=== PATIENT | female | born 1980 | race Caucasian/White ===

== ENCOUNTER 2023-01-02 00:51 | Day surgery (SDC) | payer BC, SELFPAY ==
[2022-12-22 14:38] VITALS: BMI 23.5
--- NOTE | 2022-12-22 15:02 | SUR.PREOP ---
Report to the Outpatient Waiting Room, entrance under the green pavilion located off [facility], at time 1100 on date 01/02/2023. Planned Procedure Time: 1300. Time changes happen often and if your time is changed the preop area will call you the afternoon before. - You and your visitor will be asked to self-screen and do not enter if you have any COVID symptoms. - A mask is optional within the hospital at this time. Patients may have clear liquids (water, carbonated beverages, clear teas, apple juice) until 3 hours prior to surgery with a maximum of 20 ounces- 1000. - No food from midnight until time of surgery - Infants may have breast milk until 4 hours before surgery, infant formula 6 hours prior to surgery. - Children will be allowed to drink immediately following surgery. If applicable, please bring a bottle or sippy cup to assist with drinking. Juice, water, soda, and popsicles are readily available. For infants on formula, please bring formula the day of surgery. Pacifiers are allowed. Take the following medications with a SIP of water the morning of surgery: N/A DO NOT STOP ANY OF YOUR OTHER PRESCRIPTION MEDICATIONS PRIOR TO SURGERY ?EXCEPT THE FOLLOWING Medications to discontinue per physician Vitamins and supplements Date to take last dose 12/29/2022 Please no make-up, nail kazakh, hairspray, perfume, deodorant, or body powder the day of surgery. No jewelry (including any body piercings) or valuables the day of surgery, leave them at home. Please take a shower or bath the night before, or the morning of, surgery with an antibacterial soap. Wear comfortable, loose fitting clothing. Children are encouraged to wear pajamas. - Jewelry must be removed prior to entering the operating room. Rings and piercings that are not removed may be cut off. - The hospital will not accept responsibility for valuables. - Please leave all valuables, including medications, at home the day of surgery. If you are going home after surgery, a licensed reefer truck driver must drive you home. - NO public transportation without another adult if you receive anesthesia. - We recommend that an adult stay with you for 24 hours following discharge. - We also recommend that you do not drive, make important decision, drink alcoholic beverages, or take any drugs that were not prescribed by your health care provider for at least 24 hours after your discharge time. For Pediatric surgeries, we recommend two adults accompany the child home. Follow any additional instructions given to you from your surgeon. If you or anyone in your household have experienced Covid symptoms in the past week, please notify your surgeon or the nurse liaison at the phone number below for possible testing. Telephone instructions given to ____patient- Juana and asked if any additional questions and then verbalized understanding. Patient advised to call surgeon office or pre surgery nurse liaison [phone] if any additional questions.
--- NOTE | 2023-01-02 10:39 | P.HP_ITS ---
History of Present Illness History of Present Illness Consent: Risks, benefits, and alternatives have been discussed and questions answered. Patient agrees to proceed with procedure. Chief complaint: spotting with orgasm Narrative: Juana Gallardo is a 42 year old female with vaginal bleeding after sex. Patient has no in between bleeding other than after intercourse. Cycles are regular with normal flow. It was recommended to proceed with further workup in the office with resultant normal colposcopy. It was recommended to proceed with D&C hysteroscopy and patient prefers to do in the operating room. Risks of infection, bleeding, perforation, and possible pathology are discussed. Review of Systems Review of Systems: not repeated day of surgery; patient states no changes in status PMFSH Past Medical History Medical History (Updated 01/02/23 @ 10:44 by Tia Finch MD) Anxiety MVP (mitral valve prolapse) (normal spontaneous vaginal delivery) PCOS (polycystic ovarian syndrome) Surgical History Surgical History (Updated 01/02/23 @ 10:43 by Tia Finch MD) History of breast augmentation and breast lift History of prior ablation treatment cervical 2020 Social History Social History Smoking status: Never smoker Alcohol intake: current Drinks per week: 2 Substance use: never Living arrangements: with family Spiritual care concerns: No Meds Home Medications and Allergies Home Medications Medication Instructions Recorded Confirmed Type cetirizine 10 mg capsule (Zyrtec) 10 mg PO DAILY 12/22/22 12/22/22 History multivitamin with minerals-folic 1 tablet PO DAILY 12/22/22 12/22/22 History acid 0.4 mg tablet ranitidine HCl 150 mg capsule 150 mg PO DAILY 12/22/22 12/22/22 History ubidecarenone-omega 3-vit E 25 1 cap PO DAILY 12/22/22 12/22/22 History mg-150 (90-60) mg-200 unit capsule (Co [id number] E-Fish Oil) Allergies Allergy/AdvReac Type Severity Reaction Status Date / Time No Known Allergies Verified 12/22/22 14:39 Exam Const: General: healthy appearing and alert Orientation/consciousness: patient oriented x3 Resp: Effort & Inspection: normal respiratory effort GI: GI Palp: Yes Soft to palpation, No Tenderness to palpation present (GI) and No Palpable mass present : External Female Exam: normal external appearance Speculum Exam - Vagina: normal appearance of the vagina and normal vaginal discharge Speculum Exam - Cervix: normal appearance of the cervix and Other cervical findings present ( the cervix is not friable and does not bleed with manipulation) Bimanual exam- vagina & uterus: uterine size normal and consistency normal Bi manual Exam- Adnexa, other: normal adnexae and No adnexal tenderness Neuro: General: patient oriented x3 Assessment and Plan Assessment and plan (1) Postcoital bleeding: Code(s): N93.0 - Postcoital and contact bleeding Status: Acute Assessment and Plan: There is no cervical bleeding on examination however the patient has bleeding after sex. Therefore, she presents for D&C hysteroscopy
--- NOTE | 2023-01-02 10:39 | WPDHPUPDATE1 ---
History and Physical Update Update Date/Time: 01/02/23 10:39 History and Physical has been reviewed, including an updated exam of the patient. There are NO changes in the patient's condition. Risks, benefits, and alternatives have been discussed and questions answered. Patient agrees to proceed with procedure.
[2023-01-02] MEDS: ACETAMINOPHEN 500 MG TABLET 1000 MG PO (11:00)
[2023-01-02 11:03] VITALS: BP 90/64; PULSE 74; RESP 14; TEMP 36.7; O2SAT 100
[2023-01-02] MEDS: LACTATED RINGERS 1,000 ML 30 ML IV CONT (11:06)
--- NOTE | 2023-01-02 12:09 | WPDANESEPPF ---
Anes - Initial Pre Proc Eval Procedure: Operation Date: 01/02/23 12:30 Proposed Procedures p Hysteroscopy, Dilation and Curettage - Tia Finch MD Date/Time: 01/02/23 12:09 Surgeon: Tia Finch MD Pre Op Diagnosis: spotting with orgasm Patient Data Age: 42 Gender: F Height: 1.7 m Weight: 68.3 kg Last Vital Signs Temp 36.7 C 01/02/23 11:03 Pulse 74 01/02/23 11:03 Resp 14 01/02/23 11:03 BP 90/64 L 01/02/23 11:03 Pulse Ox 100 01/02/23 11:03 O2 Del Method Room Air 01/02/23 11:03 Allergies Allergy/AdvReac Type Severity Reaction Status Date / Time No Known Allergies Verified 12/22/22 14:39 Home Medications Medication Instructions Recorded Confirmed Type cetirizine 10 mg capsule (Zyrtec) 10 mg PO DAILY 12/22/22 12/22/22 History multivitamin with minerals-folic 1 tablet PO DAILY 12/22/22 12/22/22 History acid 0.4 mg tablet ranitidine HCl 150 mg capsule 150 mg PO DAILY 12/22/22 12/22/22 History ubidecarenone-omega 3-vit E 25 1 cap PO DAILY 12/22/22 12/22/22 History mg-150 (90-60) mg-200 unit capsule (Co [id number] E-Fish Oil) Patient hx anesthesia problems: none Family hx anesthesia problems: none Results Review: All pre-operative results and documents have been reviewed as part of the pre-operative evaluation. FOR[facility]LY [facility], [facility] Past Medical History Medical History Anxiety MVP (mitral valve prolapse) (normal spontaneous vaginal delivery) PCOS (polycystic ovarian syndrome) Surgical History Surgical History History of breast augmentation and breast lift History of prior ablation treatment cervical 2020 Social History Social History Smoking status: Never smoker Alcohol intake: current Drinks per week: 2 Substance use: never Living arrangements: with family Spiritual care concerns: No Anes - Eval Final PreProcedure Day of Procedure 01/02/23 12:09 Patient weight: normal Heart: regular rate and rhythm Lungs: clear to auscultation Airway: Mallampati scale class II Neurological: alert and oriented Last oral intake: >/= 8 hours ASA classification: I Emergent: no Anesthetic plan: proceed Anesthesia type and monitoring: general GIVS and standard monitoring Results Review: All pre-operative results and documents have been reviewed as part of the pre-operative evaluation. Informed Consent: The patient's anesthetic plan and its attendant risks and benefits were discussed with the patient/family/POA. Questions were solicited and answers provided to the satisfaction of the patient/family/POA.
--- NOTE | 2023-01-02 12:50 | W.PM.PROC2 ---
Procedure Note - Detailed Date of Procedure 01/02/23 Pre-op Diagnosis Postcoital bleeding Post-op Diagnosis Same Procedure Performed D&C hysteroscopy Surgeon Tia Finch MD Anesthesia MAC Findings uterus sounds to 8cm and appears grossly normal Description of Procedure The patient is taken to the operating room and placed under anesthesia in the dorsal lithotomy position. She was prepped and draped in the usual sterile fashion. [place] speculum was placed in the vagina and the cervix is grasped on the anterior lip tenaculum. The uterus is sounded to 8cm. The diagnostic hysteroscope was placed with no abnormalities noted it is removed. The sharp curette is used to curette the endometrium until a good uterine cry was noted in all areas. All instruments are removed. Sponge, needle, and instrument counts are correct per the OR staff. Patient is awakened from anesthesia and taken to recovery in stable condition. Estimated Blood Loss 5 Drains No Packing No Pathology Yes ( Endometrial curettings) Complications No immediate complications Condition Stable Disposition PACU
[2023-01-02 12:55] VITALS: BP 99/56; PULSE 68; RESP 14; O2SAT 99
[2023-01-02 13:25] VITALS: BP 97/64; PULSE 75; RESP 14
== END 2023-01-02 14:12 | disposition home or self-care (01) ==
PROVIDERS: PCP Family Medicine; Visit Provider Obstetrics & Gynecology Gynecology
PROC: 0U5B8ZZ Destruction of Endometrium, Via Natural or Artificial Opening Endoscopic (ICD-10-PCS; CPT 58563; principal; 2023-01-02 12:30)
DX: N93.0 Postcoital and contact bleeding (principal)
CPT/HCPCS: 58558; 88305; A9270; J2250; J2405; J2704; J3010; J7120

== ENCOUNTER 2023-01-16 02:36 | Day surgery (SDC) | payer BC, SELFPAY ==
[2023-01-12 08:42] VITALS: BMI 23.4
--- NOTE | 2023-01-12 08:49 | PC.NURSE ---
Report to the Outpatient Waiting Room, entrance under the green pavilion located off [facility], at time __0600_ on date 01/16/23 Planned Procedure Time: _0730_. Time changes happen often and if your time is changed the preop area will call you the afternoon before. - You and your visitor will be asked to self-screen and do not enter if you have any COVID symptoms. - A mask is optional within the hospital at this time. Patients may have clear liquids (water, carbonated beverages, clear teas, apple juice) until 3 hours prior to surgery with a maximum of 20 ounces. - No food from midnight until time of surgery - Infants may have breast milk until 4 hours before surgery, formula 6 hours prior to surgery. - Children will be allowed to drink immediately following surgery. If applicable, please bring a bottle or sippy cup to assist with drinking. Juice, water, soda, and popsicles are readily available. For infants on formula, please bring formula the day of surgery. Pacifiers are allowed. Take the following medications with a SIP of water the morning of surgery: NONE__ DO NOT STOP ANY OF YOUR OTHER PRESCRIPTION MEDICATIONS PRIOR TO SURGERY ?EXCEPT THE FOLLOWING Medications to discontinue per physician VITAMINS/ SUPPLIMENT Date to take last dose 01/12/23 Please no make-up, nail austrian, hairspray, perfume, deodorant, or body powder the day of surgery. No jewelry (including any body piercings) or valuables the day of surgery, leave them at home. Please take a shower or bath the night before, or the morning of, surgery with an antibacterial soap. Wear comfortable, loose fitting clothing. Children are encouraged to wear pajamas. - Jewelry must be removed prior to entering the operating room. Rings and piercings that are not removed may be cut off. - The hospital will not accept responsibility for valuables. - Please leave all valuables, including medications, at home the day of surgery. If you are going home after surgery, a licensed cdl bulk driver must drive you home. - NO public transportation without another adult if you receive anesthesia. - We recommend that an adult stay with you for 24 hours following discharge. - We also recommend that you do not drive, make important decision, drink alcoholic beverages, or take any drugs that were not prescribed by your health care provider for at least 24 hours after your discharge time. For Pediatric surgeries, we recommend two adults accompany the child home. Follow any additional instructions given to you from your surgeon. If you or anyone in your household have experienced Covid symptoms in the past week, please notify your surgeon or the nurse liaison at the phone number below for possible testing. Telephone instructions given to _PATIENT and asked if any additional questions and then verbalized understanding. Patient advised to call surgeon office or pre surgery nurse liaison [phone] if any additional questions.
--- NOTE | 2023-01-13 18:11 | WPDANESEPP ---
Anes - Eval Pre Procedure Procedure: Operation Date: 01/16/23 07:30 Proposed Procedures p Laparoscopic Bilateral Salpingectomy, Hysteroscopy With Grisel Endometrial Ablation - Tia Finch MD Date/Time: 01/13/23 18:11 Pre Op Diagnosis: spotting with orgasm, sterilization Patient Data Age: 42 Gender: F Height: 1.7 m Weight: 68 kg Allergies Allergy/AdvReac Type Severity Reaction Status Date / Time No Known Allergies Verified 01/12/23 08:41 Home Medications Medication Instructions Recorded Confirmed Type cetirizine 10 mg capsule (Zyrtec) 10 mg PO DAILY 12/22/22 01/12/23 History multivitamin with minerals-folic 1 tablet PO DAILY 12/22/22 01/12/23 History acid 0.4 mg tablet ranitidine HCl 150 mg capsule 150 mg PO DAILY 12/22/22 01/12/23 History ubidecarenone-omega 3-vit E 25 1 cap PO DAILY 12/22/22 01/12/23 History mg-150 (90-60) mg-200 unit capsule (Co [id number] E-Fish Oil) Patient hx anesthesia problems: none Family hx anesthesia problems: none Results Review: All pre-operative results and documents have been reviewed as part of the pre-operative evaluation. [facility] Past Medical History Medical History (Updated 01/13/23 @ 18:12 by Sarai Petty CRNA) Anxiety GERD (gastroesophageal reflux disease) MVP (mitral valve prolapse) (normal spontaneous vaginal delivery) PCOS (polycystic ovarian syndrome) Surgical History Surgical History History of breast augmentation and breast lift History of prior ablation treatment cervical 2020 Social History Social History Smoking status: Never smoker Alcohol intake: current Drinks per week: 4 Substance use: never Living arrangements: with family Spiritual care concerns: No Exam Day of Procedure 01/13/23 18:11
[2023-01-16] VITALS (9 sets, daily range): BP systolic 88–100; BP diastolic 51–67; PULSE 62–97; RESP 16–20; TEMP 36.3–36.5; O2SAT 96–100
[2023-01-16] MEDS: ACETAMINOPHEN 500 MG TABLET 1000 MG PO (06:25)
[2023-01-16] MEDS: LACTATED RINGERS 1,000 ML 30 ML IV CONT ×2 (06:32→08:36)
[2023-01-16] MEDS: KETOROLAC 15 MG/ML VIAL (*BKC) IV PUSH (06:36)
--- NOTE | 2023-01-16 06:53 | P.PNAN_ITS ---
Anes - Eval Final PreProcedure Day of Procedure 01/16/23 06:53 Patient weight: normal Heart: regular rate and rhythm Lungs: clear to auscultation Airway: Mallampati scale class II Neurological: alert and oriented Last oral intake: >/= 8 hours ASA classification: II Emergent: no Anesthetic plan: proceed Anesthesia type and monitoring: general ETT and standard monitoring Results Review: All pre-operative results and documents have been reviewed as part of the pre- operative evaluation. Informed Consent: The patient's anesthetic plan and its attendant risks and benefits were discussed with the patient/family/POA. Questions were solicited and answers provided to the satisfaction of the patient/family/POA.
[2023-01-16] MEDS: SCOPOLAMINE 1.5 MG PATCH TRANSDERM (07:20)
--- NOTE | 2023-01-16 07:21 | WPDHPUPDATE1 ---
History and Physical Update Update Date/Time: 01/16/23 07:21 History and Physical has been reviewed, including an updated exam of the patient. There are NO changes in the patient's condition. Risks, benefits, and alternatives have been discussed and questions answered. Patient agrees to proceed with procedure.
--- NOTE | 2023-01-16 07:21 | PM.HPGS ---
History of Present Illness History of Present Illness Consent: Risks, benefits, and alternatives have been discussed and questions answered. Patient agrees to proceed with procedure. Chief complaint: spotting with orgasm, sterilization Narrative: Juana Gallardo is a 42 year old female who has completed her childbearing and has spotting with orgasm. Patient underwent D&C hysteroscopy with benign findings. Patient with a distant history a cervical ablation good results 2020. There was no cervical bleeding exam. Patient has elected to proceed with sterilization the a bilateral salpingectomy as well as Grisel endometrial ablation. Risks of infection, bleeding perforation or injury to organs, and failure are reviewed. Patient voices understanding and agrees to proceed. Review of Systems Review of Systems: not repeated day of surgery; patient states no changes in status PMFSH Past Medical History Medical History (Updated 01/16/23 @ 07:24 by Tia Finch MD) Anxiety GERD (gastroesophageal reflux disease) MVP (mitral valve prolapse) (normal spontaneous vaginal delivery) PCOS (polycystic ovarian syndrome) Surgical History Surgical History (Updated 01/16/23 @ 07:23 by Tia Finch MD) History of breast augmentation and breast lift History of hysteroscopy 01/15 benign findings History of prior ablation treatment cervical 2020 Social History Social History Smoking status: Never smoker Alcohol intake: current Drinks per week: 4 Substance use: never Living arrangements: with family Spiritual care concerns: No Meds Home Medications and Allergies Home Medications Medication Instructions Recorded Confirmed Type cetirizine 10 mg capsule (Zyrtec) 10 mg PO DAILY 12/22/22 01/16/23 History multivitamin with minerals-folic 1 tablet PO DAILY 12/22/22 01/16/23 History acid 0.4 mg tablet ranitidine HCl 150 mg capsule 150 mg PO DAILY 12/22/22 01/16/23 History ubidecarenone-omega 3-vit E 25 1 cap PO DAILY 12/22/22 01/16/23 History mg-150 (90-60) mg-200 unit capsule (Co C-[id number] E-Fish Oil) Allergies Allergy/AdvReac Type Severity Reaction Status Date / Time No Known Allergies Verified 01/16/23 06:23 Vital Signs Vital Signs - 24 hr 01/16/23 06:11 Temperature 97.3 F L Pulse Rate 71 Respiratory Rate 16 Blood Pressure 88/51 L Pulse Oximetry 100 Oxygen Delivery Room Air Exam Const: General: healthy appearing and alert Orientation/consciousness: patient oriented x3 Resp: Effort & Inspection: normal respiratory effort GI: GI Palp: Yes Soft to palpation, No Tenderness to palpation present (GI) and No Palpable mass present : External Female Exam: normal external appearance Speculum Exam - Vagina: normal appearance of the vagina and normal vaginal discharge Speculum Exam - Cervix: normal appearance of the cervix Bimanual exam- vagina & uterus: uterine size normal and consistency normal Bimanual Exam- Adnexa, other: normal adnexae and No adnexal tenderness Neuro: General: patient oriented x3 Assessment and Plan Assessment and plan (1) Encounter for sterilization: Code(s): Z30.2 - Encounter for sterilization Status: Acute Assessment and Plan: plan to proceed with laparoscopic bilateral salpingectomy (2) Postcoital bleeding: Code(s): N93.0 - Postcoital and contact bleeding Status: Acute Assessment and Plan: plan to proceed with Grisel endometrial ablation
--- NOTE | 2023-01-16 08:55 | W.PM.PROC2 ---
Procedure Note - Detailed Date of Procedure 01/16/23 Pre-op Diagnosis postcoital bleeding, sterilization Post-op Diagnosis Same Procedure Performed laparoscopic bilateral salpingectomy Grisel endometrial ablation Surgeon Tia Finch MD Anesthesia General Findings normal-appearing tubes, ovaries, uterus endometrial cavity appears normal and sounds to 8cm Description of Procedure The patient is taken to the operating room and placed under anesthesia in the dorsal lithotomy position. She was prepped and draped in usual sterile fashion. Bladder was drained with a red rubber catheter. [place] speculum was placed in the vagina and the cervix grasped on the anterior lip with a tenaculum. The acorn manipulator was placed and the speculum removed. Attention was then turned to the abdomen where a vertical skin incision was made at the base the umbilicus. The abdomen is tented and the Veress needle placed. Water drop test is normal. Opening patient pressure was 3mmHg. The patient pressure is taken [id number] with CO2. The Veress needle was then removed. The 5mm Optiview is placed while tenting the abdomen. The intra-abdominal placement is confirmed with the laparoscope. The 2 additional 5mm trocars were placed 2cm above the symphysis pubis to the left and right of midline. The atraumatic grasper was used to bring the tubes into the surgical field. The right tube was grasped at its fimbriated end and the LigaSure used to cauterize and cut the mesosalpinx. Once the cornu was reached the tube was cross clamped cauterized and cut. Identical procedure was performed on the left side. Patient did have bradycardic episode to the 30s midway in the procedure and the CO2 was released and is operating ceased while the anesthesia treated the bradycardic episode. She recovered quickly and surgery was then able to proceed. The pneumoperitoneum was reduced and instruments are removed. Skin incisions were closed using 4-0 nylon in an interrupted fashion. Sterile bandages are applied. Attention was turned to the vagina where the acorn manipulator is removed and the speculum replaced. The uterus is sounded to 8cm and the diagnostic hysteroscope was placed. No abnormalities were noted therefore the hysteroscope was removed and the Grisel device opened and placed with a setting of 5cm. Cavity assessment passed on the 1st attempt. Treatment cycle lasted the full 2minutes. The Grisel device is removed and the hysteroscope replaced with good ablation affect noted all instruments are removed. Sponge, needle, and instrument counts are correct per the OR staff. The patient is taken to recovery in stable condition. Estimated Blood Loss 5 Drains No Packing No Pathology Yes ( Bilateral tubes) Complications No immediate complications Condition Stable Disposition PACU
[2023-01-16] MEDS: fentaNYL CITRATE INJ (*CRX) 100 MCG/2 ML VIAL 25 MCG IV PUSH (09:15)
== END 2023-01-16 10:40 | disposition home or self-care (01) ==
PROVIDERS: PCP Family Medicine; Visit Provider Obstetrics & Gynecology Gynecology
PROC: 0UDB8ZZ Extraction of Endometrium, Via Natural or Artificial Opening Endoscopic (ICD-10-PCS; CPT 58558; principal; 2023-01-16 07:30)
DX: Z30.2 Encounter for sterilization (principal); N93.0 Postcoital and contact bleeding; N83.8 Other noninflammatory disorders of ovary, fallopian tube and broad ligament; K21.9 Gastro-esophageal reflux disease without esophagitis
CPT/HCPCS: 58661; 58563; 88302; A9270; J0330; J1100; J1885; J2250; J2371; J2405; J2704; J3010; J7120